=== PATIENT | male | born 1990 ===

== ENCOUNTER 2017-06-03 09:33 | Emergency (ER) | payer OTHER ==
[2017-06-03 09:39] VITALS: BP 130/67; PULSE 98; RESP 16; TEMP 97.9; O2SAT 100
[2017-06-03 09:40] VITALS: BMI 28.1
--- NOTE | 2017-06-03 11:46 | ED PDOC ---
HPI: Back Time Seen by Provider: 06/03/17 10:00 Chief Complaint (Nursing): Back Pain Chief Complaint (Provider): Back Pain History Per: Patient History/Exam Limitations: no limitations Onset/Duration Of Symptoms: Days (2 weeks) Quality Of Discomfort: "Pain" Exacerbating Factor(s): Movement Additional Complaint(s): Patient is a 27 y/o male with no past medical history who presents to the ED complaining of right lower back pain for 2 weeks. Patient reports it is worse when he moves, walks, or gets up out of bed and that the pain worsened today. 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 Patient claims to be taking Tylenol for the pain, and denies any weakness, numbness, fever, urinary symptoms, or IV drug use. PCP: Non [facility] Provider Past Medical History Reviewed: Historical Data, Nursing Documentation, Vital Signs Vital Signs: Last Vital Signs Temp 97.9 F 06/03/17 09:39 Pulse 98 H 06/03/17 09:39 Resp 16 06/03/17 09:39 BP 130/67 06/03/17 09:39 Pulse Ox 100 06/03/17 09:39 - Medical History PMH: No Chronic Diseases - Surgical History Surgical History: No Surg Hx - Family History Family History: States: No Known Family Hx - Home Medications Home Medications: Ambulatory Orders Medication Instructions Recorded Cyclobenzaprine [Cyclobenzaprine 10 mg PO TID PRN #15 tab 06/03/17 HCl] Naproxen 500 mg PO BID #20 tab 06/03/17 - Allergies Allergies/Adverse Reactions: Allergies Allergy/AdvReac Type Severity Reaction Status Date / Time No Known Allergies Allergy Verified 06/03/17 09:49 Review of Systems ROS Statement: Except As Marked, All Systems Reviewed And Found Negative Constitutional: Negative for: Fever Genitourinary Male: Positive for: Other (No urinary symptoms). Negative for: Dysuria, Hematuria Musculoskeletal: Positive for: Back Pain (Right lower back) Neurological: Negative for: Weakness, Numbness Physical Exam - Reviewed Nursing Documentation Reviewed: Yes Vital Signs Reviewed: Yes - Physical Exam Appears: Positive for: Uncomfortable Head Exam: Positive for: ATRAUMATIC, NORMOCEPHALIC Skin: Positive for: Normal Color, Warm, Dry Eye Exam: Positive for: Normal appearance, EOMI, PERRL Neck: Positive for: Normal, Painless ROM, Supple Cardiovascular/Chest: Positive for: Regular Rate, Rhythm. Negative for: Murmur Respiratory: Positive for: Normal Breath Sounds. Negative for: Respiratory Distress Gastrointestinal/Abdominal: Positive for: Normal Exam, Soft. Negative for: Tenderness Back: Positive for: Muscle Spasm (Right side of back). Negative for: L CVA Tenderness, R CVA Tenderness, Vertebral Tenderness Extremity: Positive for: Normal ROM. Negative for: Pedal Edema, Deformity Neurologic/Psych: Positive for: Alert, Oriented (x3). Negative for: Motor/ Sensory Deficits - ECG O2 Sat by Pulse Oximetry: 100 (RA) Pulse Ox Interpretation: Normal - Progress Re-evaluation Time: 12:17 Condition: Re-examined, Improved Medical Decision Making Medical Decision Making: Time: 1021 Initial Impression: back pain Differential: Musculoskeletal pain Initial Plan: --Dipstick --Flexeril 10 mg PO --Toradol 30 mg IM Scribe Attestation: Documented by Evans Skinner, acting as a scribe for Kathryn Corrales MD Provider Scribe Attestation: All medical record entries made by the Scribe were at my direction and personally dictated by me. I have reviewed the chart and agree that the record accurately reflects my personal performance of the history, physical exam, medical decision making, and the department course for this patient. I have also personally directed, reviewed, and agree with the discharge instructions and disposition. Disposition - Clinical Impression Clinical Impression: Back pain - Patient ED Disposition Is Patient to be Admitted: No Doctor Will See Patient In The: Office Counseled Patient/Family Regarding: Studies Performed, Diagnosis, Need For Followup - Disposition Referrals: [facility] [Outside] Disposition: Routine/Home Disposition Time: 12:17 Condition: GOOD Additional Instructions: Take your medications as instructed. Follow up with your PCP in 2-3 days. Prescriptions: Cyclobenzaprine [Cyclobenzaprine HCl] 10 mg PO TID PRN #15 tab PRN Reason: Pain, Severe (8-10) Naproxen 500 mg PO BID #20 tab Instructions: Muscle Spasm (ED) Print Language: SINHALA
== END 2017-06-03 12:30 | disposition home or self-care (01) ==
LOC: H.ER 09:33
DX: M54.9 Dorsalgia, unspecified (principal)
CPT/HCPCS: 96372; 99282; J1885

== ENCOUNTER 2018-04-08 09:48 | Emergency (ER) | payer OTHER ==
[2018-04-08 09:51] VITALS: BMI 30.3
[2018-04-08 09:52] VITALS: BP 132/87; RESP 18; O2SAT 99
--- NOTE | 2018-04-08 10:27 | ED PDOC ---
HPI: Back Time Seen by Provider: 04/08/18 10:11 Chief Complaint (Nursing): Back Pain Chief Complaint (Provider): Back pain History Per: Patient Additional Complaint(s): 28 yo male, no PMH, presents to ED complaining of left upper back pain after heavy lifting at work 1 week ago.[facility] Tr[facility] with no relief. Pt reports pain is more severe today. Worse with movement. Past Medical History Reviewed: Nursing Documentation, Vital Signs Vital Signs: Last Vital Signs Temp 98.5 F 04/08/18 09:51 Pulse 87 04/08/18 09:51 Resp 18 04/08/18 09:51 BP 132/87 04/08/18 09:51 Pulse Ox 99 04/08/18 09:51 - Medical History PMH: No Chronic Diseases - Family History Family History: States: No Known Family Hx - Living Arrangements Living Arrangements: With Family - Social History Current smoker - smoking cessation education provided: No Alcohol: Social Drugs: Denies - Home Medications Home Medications: Ambulatory Orders Medication Instructions Recorded Cyclobenzaprine [Cyclobenzaprine 10 mg PO TID PRN #15 tab 06/03/17 HCl] Naproxen 500 mg PO BID #20 tab 06/03/17 Ibuprofen [Motrin] 600 mg PO Q6 #20 tab 04/08/18 - Allergies Allergies/Adverse Reactions: Allergies Allergy/AdvReac Type Severity Reaction Status Date / Time No Known Allergies Allergy Verified 06/03/17 09:49 Review of Systems ROS Statement: Except As Marked, All Systems Reviewed And Found Negative Musculoskeletal: Positive for: Back Pain Physical Exam - Reviewed Nursing Documentation Reviewed: Yes Vital Signs Reviewed: Yes - Physical Exam Appears: Positive for: Well, Non-toxic, No Acute Distress Head Exam: Positive for: ATRAUMATIC, NORMAL INSPECTION, NORMOCEPHALIC Skin: Positive for: Normal Color, Warm, DRY Eye Exam: Positive for: EOMI, Normal appearance, PERRL ENT: Positive for: Normal ENT Inspection Neck: Positive for: Normal, Painless ROM Cardiovascular/Chest: Positive for: Regular Rate, Rhythm Respiratory: Positive for: CNT, Normal Breath Sounds Gastrointestinal/Abdominal: Positive for: Normal Exam, Soft Back: Positive for: Normal Inspection, Muscle Spasm (Left thoracic paraspinal ) . Negative for: Vertebral Tenderness Extremity: Positive for: Normal ROM Neurologic/Psych: Positive for: Alert, Oriented - ECG O2 Sat by Pulse Oximetry: 99 Medical Decision Making Medical Decision Making: Dip (-) blood, leuks or nites CXR: NAD, as read by MARCY Pt medicated with toradol and Morphine, good relief obtained on re-eval Pt ambulating with steady gait, asking to go home Disposition - Clinical Impression Clinical Impression: Upper back strain - Patient ED Disposition Is Patient to be Admitted: No - Disposition Disposition: Routine/Home Disposition Time: 12:44 Condition: STABLE Prescriptions: Ibuprofen [Motrin] 600 mg PO Q6 #20 tab Instructions: Muscle Strain Forms: [facility] (Telugu)
--- NOTE | 2018-04-08 11:00 | RAD ---
Date of service: 04/08/2018 HISTORY: upper back pain COMPARISON: No prior. TECHNIQUE: Chest PA and lateral FINDINGS: LUNGS: No active pulmonary disease. PLEURA: No significant pleural effusion identified. No pneumothorax apparent. CARDIOVASCULAR: Normal. OSSEOUS STRUCTURES: No significant abnormalities. VISUALIZED UPPER ABDOMEN: Normal. OTHER FINDINGS: None. IMPRESSION: No active disease.
[2018-04-08 12:43] VITALS: PULSE 78; TEMP 98
== END 2018-04-08 12:42 | disposition home or self-care (01) ==
LOC: H.ER 09:48
DX: S29.012A Strain of muscle and tendon of back wall of thorax, initial encounter (principal); X50.9XXA Other and unspecified overexertion or strenuous movements or postures, initial encounter; Y99.0 Civilian activity done for income or pay
CPT/HCPCS: 71046; 96374; 99283; J1885; J2270